=== PATIENT | male | born 1970 | race Caucasian/White ===

== ENCOUNTER 2019-07-01 12:15 | Outpatient (CLI) | payer BC, SELFPAY ==
[2019-07-01 12:52] LABS: Basophils Absolute Auto 0.1 K/mm3 (0.0-0.1); Basophils Percent Auto 1.1 % (0.2-1.2); Eosinophils Absolute Auto 0.2 K/mm3 (0-0.3); Eosinophils Percent Auto 2.7 % (0-4.4); Hematocrit 47.4 % (42.0-52.0); Hemoglobin 16.7 g/dL (14.0-18.0); Immature Granulocyte Absolute 0.12 K/mm3 (0.00-0.031); Immature Granulocyte Percent A 1.8 % (0-0.5); Lymphocytes Absolute Auto 1.79 K/mm3 (0.9-3.2); Lymphocytes Percent Auto 27.3 % (18.3-44.2); Mean Corpuscular HGB Conc 35.2 g/dl (32-36); Mean Corpuscular Hemoglobin 33.3 pg (26-34); Mean Corpuscular Volume 94.4 fl (80-100); Monocytes Absolute Auto 0.6 K/mm3 (0.1-0.6); Monocytes Percent Auto 8.5 % (2.6-8.5); Neutrophils Absolute Auto 3.8 K/mm3 (1.3-6.7); Neutrophils Percent Auto 58.6 % (45.5-73.1); Platelet Count Result 287 k/mm3 (150-375); Red Blood Count 5.02 M/mm3 (4.6-6.20); White Blood Count 6.6 K/mm3 (4.5-10.0)
[2019-07-01 13:03] LABS: Alanine Aminotransferase 27 U/L (4-50); Albumin Level 4.4 g/dL (3.5-5.1); Alkaline Phosphatase 72 U/L (38-126); Aspartate Amino Transferase 35 U/L (17-59); Bilirubin,Total 0.5 mg/dL (0.2-1.3); Blood Urea Nitrogen 6 mg/dL (9-20); Calcium 8.9 mg/dL (8.4-10.2); Carbon Dioxide 23 mmol/L (22-30); Chloride 94 mmol/L (98-107); Cholesterol 168 mg/dL (0-200); Estimated Glomerular Filt Rate > 60; Glucose 88 mg/dL (75-110); HDL Direct 51 mg/dL; Potassium 4.4 mmol/L (3.4-5.0); Sodium 130 mmol/L (137-145); Triglycerides 216 mg/dL (<150)
[2019-07-01 13:14] LABS: LDL Cholesterol Direct 86 mg/dL
[2019-07-01 13:37] LABS: Vitamin D 25 Hydroxy 44.6 ng/mL
== END 2019-07-01 12:16 | disposition home or self-care (01) ==
DX: S09.21XA Traumatic rupture of right ear drum, initial encounter (principal); X58.XXXA Exposure to other specified factors, initial encounter; F41.8 Other specified anxiety disorders; I10 Essential (primary) hypertension; E78.5 Hyperlipidemia, unspecified; E55.9 Vitamin D deficiency, unspecified
CPT/HCPCS: 36415; 80053; 80061; 82306; 84443; 85025

== ENCOUNTER 2020-04-04 15:13 | Outpatient (CLI) | payer BC, SELFPAY ==
[2020-04-04 15:53] LABS: Alanine Aminotransferase 56 U/L (4-50); Albumin Level 4.6 g/dL (3.5-5.1); Alkaline Phosphatase 72 U/L (38-126); Anion Gap 9 mmol/L (8-16); Aspartate Amino Transferase 54 U/L (17-59); Blood Urea Nitrogen 7 mg/dL (9-20); Calcium 9.7 mg/dL (8.4-10.2); Carbon Dioxide 26 mmol/L (22-30); Chloride 96 mmol/L (98-107); Estimated Glomerular Filt Rate > 60; Glucose 105 mg/dL (75-110); Potassium 4.3 mmol/L (3.4-5.0); Sodium 131 mmol/L (137-145)
[2020-04-04 16:24] LABS: Prostate Specific Antigen 1.1 ng/mL (< OR = 4.0)
== END 2020-04-04 15:14 | disposition home or self-care (01) ==
LOC: ANHLAB 15:17
DX: I10 Essential (primary) hypertension (principal); Z12.5 Encounter for screening for malignant neoplasm of prostate
CPT/HCPCS: 36415; 80053; 84153; G0103

== ENCOUNTER → 2022-06-01 12:12 | Outpatient (CLI) | payer SELFPAY ==
--- NOTE | ~2022-06-01 | XR_ITS ---
Right wrist Technique: PA, oblique, lateral, and ulnar deviation views were obtained. Clinical History: Scaphoid fracture Findings: No acute fracture or dislocation is seen. Osseous alignment is anatomic. Joint spaces are p reserved. Soft tissues are unremarkable. Impression: No fracture identified. If there is persistent clinical concern for scaphoid fracture, then consider MR as the most sensitive exam to confirm or exclude this diagnosis. Reviewed, dictated and finalized at location . HYSICAL MANAGER Impression: No fracture identified. If there is persistent clinical concern for scaphoid fr acture, then consider MR as the most sensitive exam to confirm or exclude this diagnosis.
== END ==
PROVIDERS: PCP Plastic Surgery; Visit Provider Plastic Surgery
DX: S62.024A Nondisplaced fracture of middle third of navicular [scaphoid] bone of right wrist, initial encounter for closed fracture (principal)
CPT/HCPCS: 73110

== ENCOUNTER 2022-07-20 22:05 | Emergency (ER) | payer BC, SELFPAY ==
--- NOTE | ~2022-07-20 | XR_ITS ---
Right Hand Technique: PA, oblique, and lateral views were obtained. Clinical History: Injury Findings: No acute fracture or dislocation is seen. Osseous alignment is anatomic. Mild degenerative changes are noted at the second and third MCP joints. Soft tissues are unremarkable. Impression: No acute abnormality. Mild degenerative change at the second and third MCP joints. Reviewed, dictated and finalized at [facility]. Impression: No acute abnormality. Mild degenerative change at the second and third MCP joints.
[2022-07-20 22:09] VITALS: BP 187/108; PULSE 97; RESP 20; TEMP 36.7; O2SAT 100
[2022-07-20 23:50] VITALS: PULSE 86; RESP 16; O2SAT 100
--- NOTE | 2022-07-21 00:34 | ED.WOUNDLAC ---
HPI - Wound/Laceration General Chief Complaint: Wound/Laceration <Anne-Marie Baig PA-C - Last Filed: 07/21/22 02:03> Stated Complaint: laceration <BRIAN Gonzales Last Filed: 07/21/22 02:03> Time Seen by Provider: 07/21/22 00:06 <Anne-Marie Baig PA-C - Last Filed: 07/21/22 02:03> History of Present Illness HPI narrative: 52 y/o M reports for evaluation of a laceration to his R 4th digit that occurred a few hours prior to arrival. Pt reports he was cleaning a knife and accidently cut his finger. He reports using quick clot on the wound with successful hemostasis. Denies difficulty moving his finger, numbness or tingling. Last tetanus unknown. <Anne-Marie Baig PA-C - Last Filed: 07/21/22 02:03> Related Data Allergies/Adverse Reactions: Allergies Allergy/AdvReac Type Severity Reaction Status Date / Time No Known Allergies Allergy Unverified 02/28/16 01:51 <Anne-Marie Baig PA-C - Last Filed: 07/21/22 02:03> Review of Systems Review of Systems: CONSTITUTIONAL: Denies fever, chills EYES: Denies visual changes, redness, or discharge. ENT: Denies rhinorrhea, congestion, sore throat, or otalgia. CARDIOVASCULAR: Denies chest pain, palpitations, or edema. RESPIRATORY: Denies cough or dyspnea. GASTROINTESTINAL: Denies abdominal pain, nausea, vomiting, or diarrhea. GENITOURINARY: Denies dysuria or hematuria. SKIN: Denies rash or itching. MUSCULOSKELETAL: Denies back pain, joint pain, or myalgia. NEUROLOGIC: Denies headache, numbness, dizziness, or weakness. PSYCHIATRIC: Denies anxiety or depression. <BRIAN Gonzales Last Filed: 07/21/22 02:03> Exam Narrative: GENERAL: Well-appearing, well-nourished, and in no acute distress. Patient resting comfortably in the bed. He is pleasant and conversational HEAD: Normocephalic, atraumatic. NECK: Supple. No adenopathy or masses. CHEST: Clear to auscultation. No respiratory distress. No wheezes rales or rhonchi HEART: Regular rate and rhythm. No murmur heard. Normal peripheral pulses. EXTREMITIES: Normal range of motion. No edema. SKIN: superficial 1 cm laceration to the fat pad of the R 4th digit. No nail involvement. Bleeding controlled. Full ROM of finger. Sensation intact distally. Cap refill <2. Radial pulse 2+. NEURO: No focal deficits. Alert and oriented x3. PSYCH: Normal mood and affect. <Anne-Marie Baig PA-C - Last Filed: 07/21/22 02:03> Course ORTHOPEDIC NURSE/PA Physician Supervision This is a was performed by both a physician and an APC. I performed all aspects of the MDM as documented w/ the following additions: 52-year-old presenting with a minor finger laceration. No repair required. Tdap booster given. Patient given return precautions. All questions answered. Patient in agreement w/ disposition. <Rashaun Hsieh MD - Last Filed: 07/21/22 06:16> Vital Signs Vital signs: Vital Signs Temperature 98.0 F 07/20/22 22:09 Pulse Rate 97 07/20/22 22:09 Respiratory Rate 20 07/20/22 22:09 Blood Pressure 187/108 H 07/20/22 22:09 Pulse Oximetry 100 07/20/22 22:09 Oxygen Delivery Room Air 07/20/22 22:09 Temperature 98.0 F 07/20/22 22:09 Pulse Rate 76 07/21/22 02:30 Respiratory Rate 16 07/21/22 02:30 Blood Pressure 155/114 H 07/21/22 02:30 Pulse Oximetry 100 07/21/22 02:30 Oxygen Delivery Room Air 07/20/22 23:50 <Anne-Marie Baig PA-C - Last Filed: 07/21/22 02:03> Vital Signs Temperature 98.0 F 07/20/22 22:09 Pulse Rate 97 07/20/22 22:09 Respiratory Rate 20 07/20/22 22:09 Blood Pressure 187/108 H 07/20/22 22:09 Pulse Oximetry 100 07/20/22 22:09 Oxygen Delivery Room Air 07/20/22 22:09 Temperature 98.0 F 07/20/22 22:09 Pulse Rate 76 07/21/22 02:30 Respiratory Rate 16 07/21/22 02:30 Blood Pressure 155/114 H 07/21/22 02:30 Pulse Oximetry 100 07/21/22 02:30 Oxygen Delivery Room Air 07/20/22 23:50 <Rashaun Hsieh MD -
[2022-07-21] MEDS: IBUPROFEN 400 MG TABLET 800 MG PO (00:39)
[2022-07-21] MEDS: ACETAMINOPHEN 500 MG TABLET 1000 MG PO (00:39)
[2022-07-21] MEDS: TETANUS,DIPHTHERIA,AC PERTUSSIS ADULT (0.5 ML) BOOSTRIX IM (00:39)
[2022-07-21] MEDS: NEOMYCIN/POLYMYXIN/BACITRACIN OINTMENT PACKET 1 PACKET TOPICAL (02:29)
[2022-07-21 02:30] VITALS: BP 155/114; PULSE 76; RESP 16; O2SAT 100
== END 2022-07-21 02:31 | disposition home or self-care (01) ==
PROVIDERS: Emergency Provider Physician Assistant
DX: S61.214A Laceration without foreign body of right ring finger without damage to nail, initial encounter (principal); Z23 Encounter for immunization; W26.0XXA Contact with knife, initial encounter
CPT/HCPCS: 73130; 90471; 90715; 99283; A9270

== ENCOUNTER → 2024-08-10 14:42 | Outpatient (CLI) | payer BC, SELFPAY ==
--- NOTE | ~2024-08-10 | XR_ITS ---
Left Shoulder Technique: AP and scapular Y views were obtained. Clinical History: Pain Findings: No fracture or dislocation is seen. Osseous alignment is anatomic. The glenohumeral and acr omioclavicular joint spaces are preserved. Soft tissues are unremarkable. Impression: Unremarkable left shoulder radiographs. Reviewed, dictated and finalized at [facility]. Impression: Unremarkable left shoulder radiographs.
--- NOTE | ~2024-08-10 | XR_ITS ---
HISTORY: Bilateral shoulder pain COMPARISON: None TECHNIQUE: 4 views of the right shoulder were performed FINDINGS: No acute fracture. The glenohumeral and acromioclavicular joint space is maintained The visualized portion of the adjacent right lung is clear. The humeral head is well seated within the glenoid fossa. IMPRESSION: No acute fracture or anterior dislocation Reviewed, dictated and finalized at location A.
== END ==
LOC: EXPCRAD 14:46
PROVIDERS: PCP Emergency Medicine; Visit Provider Emergency Medicine
DX: M25.511 Pain in right shoulder (principal); M25.512 Pain in left shoulder
CPT/HCPCS: 73030